=== PATIENT | male | born 1985 | race Caucasian/White ===

== ENCOUNTER 2020-08-14 09:57 | Emergency (ER) | payer OTHER, SELFPAY ==
[2020-08-14 10:23] VITALS: BP 142/86; PULSE 69; RESP 20; TEMP 36.8; O2SAT 100
--- NOTE | 2020-08-14 10:51 | ED.EAR ---
HPI - Ear Problem General Chief complaint: Ear Stated complaint: ear pain Time Seen by Provider: 08/14/20 10:51 Source: patient, RN notes reviewed and old records reviewed Mode of arrival: ambulatory Limitations: no limitations History of Present Illness HPI Narrative: 35-year-old male who presents to [facility] with bilateral ear pain since . He just returned from [place] and was in swimming alot in pool and in the ocean. He states that his hearing is muffled and he has tenderness to the outside of his ears. He states that he feels like he has some drainage from his ears especially the left.He rates his pain as 7/10 and describes pain as being achy. He states that he has had problems with excessive ear wax in the past. MD Complaint: ear pain and decreased hearing Location: bilateral Relieving factors: nothing Discharge from ear: Reports no Associated symptoms ear: external ear tenderness and ear swelling (canals) Treatment prior to arrival: none Related Data Home Medications Medication Instructions Recorded Confirmed gabapentin 300 mg PO BID 08/14/20 08/14/20 Allergies Allergy/AdvReac Type Severity Reaction Status Date / Time No Known Allergies Allergy Verified 08/14/20 10:38 Review of Systems Review of Systems: Narrative: CONSTITUTIONAL: Denies fever, chills, or sweats. EYES: Denies visual changes, redness, or discharge. ENT: Denies rhinorrhea, congestion, sore throat, bilateral otalgia and muffled hearing CARDIOVASCULAR: Denies chest pain, palpitations, or edema. RESPIRATORY: Denies cough or dyspnea. GASTROINTESTINAL: Denies abdominal pain, nausea, vomiting, or diarrhea. GENITOURINARY: Denies dysuria or hematuria. SKIN: Denies rash or itching. MUSCULOSKELETAL: Denies back pain, joint pain, or myalgia. NEUROLOGIC: Denies headache, numbness, or weakness. PSYCHIATRIC: Denies anxiety or depression. 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 Restless leg syndrome Surgical History Surgical History (Updated 08/15/20 @ 19:39 by Vicenta Dupont NP) History of eye surgery right eye for lazy eye Family History Family History (Updated 08/15/20 @ 19:38 by Vicenta Dupont NP) Grandparent Heart disease Cancer Social History Social History (Updated 08/15/20 @ 19:37 by Vicenta Dupont NP) Smoking status: Never smoker Alcohol intake: current Alcohol use details: social Substance use: never Living arrangements: with family Gender identity (if verbalized by the patient): Male Comments At time of signature agree with nursing documentation of past medical, surgical,social and family history. There is no relevant family history that is pertinent to presenting complaint. Exam Narrative: Exam Narrative: GENERAL: Well-appearing, well-nourished, and in no acute distress. HEAD: Normocephalic, atraumatic. EYES: PERRLA and EOMI. ENT: Nares clear, no rhinorrhea or epistaxis. Mucous membranes moist.TM's occluded by impacted cerumen, canals red and excoriated with no drainage noted, some swelling noted to canals, throat pink with no exudates or lesions no tonsil enlargement. Bilateral irrigation of ears performed with removal of moderate amount of impacted cerumen with TM's noted to be normal with good light reflex, ear canals red and excoriated no drainage noted from ear canals.no abnormality of external ear noted. NECK: Supple.no lymphadenopathy CHEST: Clear to auscultation. No respiratory distress, SAO2 100% on room air HEART: Regular rate and rhythm. No murmur. Normal peripheral pulses. ABDOMEN: Soft, nontender, nondistended, normal, active bowel sounds. EXTREMITIES: Normal range of motion. No edema. SKIN: Warm, dry, no rash. NEURO: No focal deficits. Alert and oriented x3. Course Vital Signs Vital
== END 2020-08-14 11:37 | disposition home or self-care (01) ==
PROVIDERS: Emergency Provider Registered Nurse
DX: H60.93 Unspecified otitis externa, bilateral (principal); H61.23 Impacted cerumen, bilateral
CPT/HCPCS: 69209; 99213; G0463